=== PATIENT | female | born 1955 | race Caucasian/White ===

== ENCOUNTER 2016-12-09 09:53 | Observation (INO) | payer MEDICAID, MEDICARE ==
[2016-12-09] VITALS (9 sets, daily range): BP systolic 119–149; BP diastolic 66–86; PULSE 87–99; RESP 16–20; O2SAT 94–99
[~2016-12-09] VITALS: Ht 172.7 cm; Wt 121.4 kg
[~2016-12-09 09:53] MED LIST: ERGO500029 PO; EXEN2PEN SQ; INSU100V SUBQ; LISI10TA2 PO; METF500T4 PO; PREG150C PO; SIMV20TA PO
--- NOTE | 2016-12-09 10:33 | ED.REPORT ---
HPI-Chest Pain 40 and Over Date of Service Dec 09, 2016 ED Provider: Mikey Soto MD This is a 61 year old female with a history of hypertension, hyperlipidemia, and DM presenting to the emergency department via EMS due to sudden onset chest pain that began six hours ago that is now resolved. Patient woke up from sleep with sudden onset left sided chest pain described as "grabbing" that radiated to the left shoulder. Denies radiation to back or neck. Pain associated with nausea, shortness of breath, and mild lightheadedness. Denies vomiting. Patient took ASA and measured BP to be 173/158 and blood sugar to be 243 at that time. En route pt was given nitroglycerin which as resolved the chest pain. Nursing Notes Stated Complaint: CHEST PAIN Chief Complaint: Chest Pain Nursing Notes Reviewed: Yes Allergies: Coded Allergies: codeine (Verified Adverse Reaction, Unknown, GI UPSET, 02/03/15) Scheduled Cholecalciferol (Vitamin D3) (Vitamin D) 50,000 Unit Capsule 50,000 UNIT PO 3xw Dulaglutide (Trulicity) 0.75 Mg/0.5 Ml Pen.injctr 1 DOSE SUBQ WEEKLY Duloxetine (Duloxetine) 60 Mg Capsule.dr 60 MG PO BID Insulin Aspart (NovoLOG 70/30 U100 Insulin Vial) 100 Unit/Ml Vial 35 U SUBQ DAILY Insulin Aspart (NovoLOG 70/30 U100 Insulin Vial) 100 Unit/Ml Vial 40 UNIT SUBQ HS Lisinopril (Lisinopril) 10 Mg Tablet 10 MG PO DAILY Metformin (Metformin) 500 Mg Tablet 500 MG PO BIDWM Pregabalin (Lyrica) 150 Mg Capsule 225 MG PO BID Simvastatin (Zocor) 20 Mg Tablet 20 MG PO HS Scheduled PRN Hydrocodone-Acetaminophen 10-325 mg (Hydrocodone-Acetaminophen 10-325 mg) 1 Each Tablet 1-2 TABLET PO DAILY PRN PRN For Pain General Time Seen by MD: 10:17 Chief Complaint Chest pain Hx Obtained From: Patient Arrived By: Walk-in Sudden in Onset?: Yes Onset Occurred: 5 - 8 hours ago Symptom Duration: Since onset Severity: Current: Mild Pertinent Negative: Pt denies other symptoms Recent Healthcare: No recent doctor visit, No recent hospitalization Similar Sx Previous: No Risk Factors )( CAD Risk Stratification Diabetes mellitus Hyperlipidemia Hypertension Risk factors reviewed HEART Score HEART for MACE: Age 45 - 65 (1), 3+ CAD risk factors (2) Past Medical History Past Medical History Carpal tunnel Arthritis Fibromyalgia Reports: Diabetes mellitus, Hyperlipidemia, Hypertension Past Surgical History carpal tunnel release Ambulatory Status Independent Review of Systems Constitutional: Denies: Chills, Fever Respiratory: Reports: Shortness of breath, Denies: Non-productive cough Cardiovascular: Reports: Chest pain, Denies: Palpitations GI: Reports: Nausea, Denies: Abdominal pain, Diarrhea, Vomiting Musculoskeletal: Denies: Back pain Neurologic: Denies: Headache Complete sys rev & neg: except as marked. Physical Exam Initial Vital Signs Vital Signs (First) Date Time Temp Pulse Resp B/P Pulse Ox O2 Delivery O2 Flow Rate FiO2 12/09/16 10:06 37.3 87 17 142/82 96 Room Air Initial VS: Reviewed Head / Eyes: Atraumatic, Normocephalic, PERRL ENT: Mucous membranes moist, Conjunctiva normal, No scleral icterus Neck: Supple, Non-tender, Full range of motion Extremities: Vascular intact, Neuro intact, No swelling, No tenderness Skin: Warm, Dry, No cyanosis Neurologic: Alert, Oriented, Nonfocal Psychiatric: Mood/affect normal, Behavior normal, Normal thought content General/Constitutional: Awake, Alert Respiratory / Chest: Breath sounds NL, Breath sounds = bilat, No respiratory distress, No rales, No rhonchi, No wheezing, No stridor, No chest tenderness Cardiovascular: Regular rhythm, Heart sounds NL Left chest reproducible tendnerness Abdomen: Soft, Non-tender, McBurney's non-tender, No guarding, No rebound, BS normoactive, No distention, No hernia, No palpable mass Interpretation & Diagnostics Lab Results Interpretation Result Diagram: 12/09/16 1025 12/09/16 1025 Test 12/09/16 10:25 12/09/16 10:55 White Blood Count 7.5th/mm3 (3.8-10.1) Red Blood Count 4.39mil/mm3 (3.90-5.20) Hemoglobin 13.6g/dL (12.0-15.6) Hematocrit 41.1% (35.0-46.0) Mean Corpuscular Volume 93.6fL (81-100) Mean Corpuscular Hemoglobin 31.0pg (27.0-35.0) Mean Corpuscular Hemoglobin Concent 33.1% (32.0-37.0) Red Cell Distribution Width 12.2% (12.3-15.4) Platelet Count 204bil/L (150-400) Neutrophils (%) (Auto) 66.7% (40-74) Lymphocytes (%) (Auto) 22.2% (14-46) Monocytes (%) (Auto) 8.6% (4-12) Eosinophils (%) (Auto) 1.5% (0-5) Basophils (%) (Auto) 0.5% (0-3) Sodium Level 137mEq/L (134-144) Potassium Level 4.3mEq/L (3.5-5.2) Chloride Level 98mEq/L (97-108) Carbon Dioxide Level 20mmol/L (18-29) Blood Urea Nitrogen 13mg/dL (8-27) Creatinine 0.53mg/dL (0.57-1.00) Estimat Glomerular Filtration Rate 169mL/min (>59) Glucose Level 223mg/dL (60-99) Calcium Level 9.7mg/dL (8.5-10.1) Magnesium Level 1.8mg/dL (1.6-2.6) Total Bilirubin 0.3mg/dL (0.0-1.2) Aspartate Amino Transf (AST/SGOT) 35U/L (0-50) Alanine Aminotransferase (ALT/SGPT) 45U/L (0-32) Alkaline Phosphatase 61U/L (25-165) Troponin T 0.010ug/L (0.0-0.011) Pro-B-Type Natriuretic Peptide 8.91pg/mL (0-287) Total Protein 7.3g/dL (6.4-8.4) Albumin 4.1g/dL (3.4-5.0) Hold Fernandez Top Tube Received (Received) Prothrombin Time 10.3sec (8.1-12.5) Prothromb Time International Ratio 0.96ratio ECG Interpretation ECG Interpretation: SR at a rate of [address] changes Time: 10:39 Interpreted by: ED physician X-Ray Chest Interpretation Chest Xray Interpretation: IMPRESSION: Stable chest. No acute cardiopulmonary process is suspected. Dictated by: Lobo Lloyd M.D. on 12/09/2016 at 9:54 Approved by: Lobo Lloyd M.D. on 12/09/2016 at 9:55 Re-Eval/Medical Decision Med Decision/Clinical Course 61-year-old female history of hypertension, hyperlipidemia, diabetes presenting with chest pain that woke her up this morning substernal. It woke her up at 4 AM then again at 7 AM. Resolved with nitroglycerin at her primary doctor's office. Negative troponins 1. Given elevated heart score and discussion with patient and family she will be admitted for observation. Time of Eval: 12:50 Re-Evaluation/Progress Note: Discussed lab results and need for admission. Pt understands and agrees with plan, all questions addressed. Consultation : Referral / Consult Name: DenisscoutVik Consulted With: Hospitalist Call Returned at: 13:24 Record Systems Analyst: Accepts admit Counseled Regarding: Diagnosis, Lab results, Need for follow-up, Need for admission Discharge & Departure Primary Impression: Chest pain Chest pain type: unspecified Qualified Code: R07.9 - Chest pain, unspecified Disposition: ADMITTED TO HOSPITAL Discharge Condition All VS Reviewed: Yes Condition: Stable Referrals: Jonathan Antunez MD (PCP) Scribe Attestation Portions of this note were transcribed by Nehemias Noe. I, Dr. Soto personally performed the history, physical exam and medical decision-making; I reviewed and confirmed the accuracy of the information in the transcribed note. Signed by Taylor Quispe, 12/09/2016 at 18:00. Mikey Soto MD Dec 09, 2016 10:33 NEHEMIAS NOE Dec 09, 2016 10:39
[2016-12-09 10:38] LABS: BASOPHILS % (AUTO) 0.5 % (0-3); EOSINOPHILS % (AUTO) 1.5 % (0-5); MONOCYTES % (AUTO) 8.6 % (4-12); Mean Corpuscular Volume 93.6 fL (81-100); NEUTROPHILS % (AUTO) 66.7 % (40-74); Platelet Count 204 bil/L (150-400)
--- NOTE | 2016-12-09 10:56 | DRSVH ---
PROCEDURE: X-RAY CHEST ONE VIEW, PORTABLE ([id number]) INDICATIONS: cp TECHNIQUE: One view of the chest was acquired. COMPARISON: [facility], , CHEST 2VW, 06/08/2014, 12:22. [facility], , CHEST 2VW, 12/27/2013, 10:18. FINDINGS: Surgical changes and devices: None. Lungs and pleura: No pleural effusions or pneumothorax. Lungs are clear. Mediastinum: Mediastinal contours appear normal. Heart size is normal. Bones and chest wall: No suspicious bony lesions. Degenerative changes of the spine and shoulders a re noted. Overlying soft tissues appear unremarkable. IMPRESSION: Stable chest. No acute cardiopulmonary process is suspected. Dictated by: Lobo Lloyd M.D. on 12/09/2016 at 9:54 Approved by: Lobo Lloyd M.D. on 12/09/2016 at 9:55
[2016-12-09 11:24] LABS: INR 0.96 ratio
[2016-12-09 12:18] LABS: TROPONIN T 0.01 ug/L (0.0-0.011)
[2016-12-09 12:29] LABS: Magnesium 1.8 mg/dL (1.6-2.6)
[2016-12-09] MEDS ORDERED: NOVO7030I SUBQ ×2 (13:52)
[2016-12-09] MEDS ORDERED: HYDR-3740 PO (13:52)
[2016-12-09] MEDS ORDERED: DULO60CA61 PO (13:52)
[2016-12-09] MEDS ORDERED: DULA0.75 SUBQ (13:52)
[2016-12-09] MEDS ORDERED: LISI10TA PO (13:53)
[2016-12-09] MEDS ORDERED: CHOL500050 PO (13:54)
[2016-12-09] MEDS ORDERED: Alum-Mag Hydrox-Simeth 30 mL Suspension PO PRN ×2 (15:05→18:00)
[2016-12-09] MEDS ORDERED: Ondansetron 2 mg/mL 2 mL Inj IVPUSH PRN ×2 (15:05→18:00)
--- NOTE | 2016-12-09 15:20 | NUR ---
Admission Patient arrived on unit via gurney from ER. Patient alert and oriented x3 on arrival. Patient reporting waking this morning with chest pain/squeezing, radiating down Lt arm/hand with Lt hand numbness. Patient also reporting this morning having shortness of breath, nausea, dizziness. All symptoms now resolved. Patient currently reporting only a headache, "from the nitro". Denies current chest discomfort, nausea or shortness of breath.
[2016-12-09] MEDS ORDERED: Polyethylene Glycol (PEG) 17 Gm Powder PO PRN (18:00)
[2016-12-09] MEDS ORDERED: HYDROcodone-APAP 10-325 mg PO PRN (18:05)
--- NOTE | 2016-12-09 18:13 | PCM.HPMED ---
Subjective Date of Service Dec 09, 2016 Primary Provider: Admitting Physician: Vik Cortez Primary Care Physician: Zana Gauthier DO Attending Physician: Vik Cortez Chief Complaint: chest pain History of Present Illness: 61 year old female with a history of hypertension, hyperlipidemia, and DM presenting today with complaint of sudden onset chest pain that began around 4 am today. Patient woke up from sleep early this morning "not feeling well" and noticed she was having some left sided chest pain described as "grabbing" that radiated to the left shoulder. Denies radiation to back or neck. Pain associated with nausea, shortness of breath, and mild lightheadedness at the time. She called her daughter (who lives upstairs from her) who took her blood pressure and noted elevated at about 173/158 and blood sugar ws 243 at that time. Her daughter gave patient an Aspirin and patient was able to go back to sleep. In the morning she was going to see her doctor at the [facility] but was instead instructed to come to the ED. Because she was still having some chest pain and not feeling well EMS was called. En route pt was given nitroglycerin which almost immediately resolved the chest pain but she now has a mild headache as the result. She was having some lightheadedness and dizziness this morning but not now. She reports occasional lower extremity swelling when walking or standing too long but otherwise denies any orthopnea or paroxysmal nocturnal dyspnea. She reports chronic tingling in her feet due to diabetic neuropathy and tingling and pain in her hands from carpal tunnel. Allergies Coded Allergies: codeine (Verified Adverse Reaction, Unknown, GI UPSET, 02/03/15) Home Medications Lisinopril 10 Mg Tablet 10 Mg PO DAILY 30 Days Simvastatin 20 Mg Tablet (Zocor) 20 Mg PO HS 30 Days Duloxetine 60 Mg Capsule.Dr 60 Mg PO BID Hydrocodone-Acetaminophen 10-325 mg 1 Each Tablet 1-2 Tablet PO DAILY PRN Dulaglutide 0.75 Mg/0.5 Ml Pen.Injctr (Trulicity) 1 Dose SUBQ WEEKLY Insulin Aspart 100 Unit/Ml Vial (NovoLOG 70/30 U100 Insulin Vial) 35 U SUBQ DAILY Insulin Aspart 100 Unit/Ml Vial (NovoLOG 70/30 U100 Insulin Vial) 40 Unit SUBQ HS #1 VIAL Metformin 500 Mg Tablet 500 Mg PO BIDWM 30 Days Cholecalciferol (Vitamin D3) 50,000 Unit Capsule (Vitamin D) 50,000 Unit PO 3xw Exam Vital Signs & I/O Vital Sign- Last 8 Hours Date Time Temp Pulse Resp B/P Pulse Ox O2 Delivery O2 Flow Rate FiO2 12/09/16 17:13 36.8 94 18 119/77 96 Room Air 12/09/16 16:29 94 12/09/16 15:35 36.6 94 20 133/84 96 Room Air 12/09/16 14:51 37.0 97 18 125/66 99 Room Air 12/09/16 12:42 99 16 149/68 99 Room Air 12/09/16 11:00 90 18 144/76 96 Room Air Lab & Micro Results Laboratory Tests Test 12/09/16 10:25 12/09/16 10:55 White Blood Count 7.5th/mm3 (3.8-10.1) Red Blood Count 4.39mil/mm3 (3.90-5.20) Hemoglobin 13.6g/dL (12.0-15.6) Hematocrit 41.1% (35.0-46.0) Mean Corpuscular Volume 93.6fL (81-100) Mean Corpuscular Hemoglobin 31.0pg (27.0-35.0) Mean Corpuscular Hemoglobin Concent 33.1% (32.0-37.0) Red Cell Distribution Width 12.2% (12.3-15.4) Platelet Count 204bil/L (150-400) Neutrophils (%) (Auto) 66.7% (40-74) Lymphocytes (%) (Auto) 22.2% (14-46) Monocytes (%) (Auto) 8.6% (4-12) Eosinophils (%) (Auto) 1.5% (0-5) Basophils (%) (Auto) 0.5% (0-3) Sodium Level 137mEq/L (134-144) Potassium Level 4.3mEq/L (3.5-5.2) Chloride Level 98mEq/L (97-108) Carbon Dioxide Level 20mmol/L (18-29) Blood Urea Nitrogen 13mg/dL (8-27) Creatinine 0.53mg/dL (0.57-1.00) Estimat Glomerular Filtration Rate 169mL/min (>59) Glucose Level 223mg/dL (60-99) Calcium Level 9.7mg/dL (8.5-10.1) Magnesium Level 1.8mg/dL (1.6-2.6) Total Bilirubin 0.3mg/dL (0.0-1.2) Aspartate Amino Transf (AST/SGOT) 35U/L (0-50) Alanine Aminotransferase (ALT/SGPT) 45U/L (0-32) Alkaline Phosphatase 61U/L (25-165) Troponin T 0.010ug/L (0.0-0.011) Pro-B-Type Natriuretic Peptide 8.91pg/mL (0-287) Total Protein 7.3g/dL (6.4-8.4) Albumin 4.1g/dL (3.4-5.0) Hold Fernandez Top Tube Received (Received) Prothrombin Time 10.3sec (8.1-12.5) Prothromb Time International Ratio 0.96ratio Result Diagram: 12/09/16 1025 12/09/16 1025 Review of Systems: Constitutional: Negative, except as otherwise mentioned in the history above. Ophthalmologic: Negative, except as otherwise mentioned in the history above. Cardiovascular: Negative, except as otherwise mentioned in the history above. Respiratory: Negative, except as otherwise mentioned in the history above. Gastrointestinal: Negative, except as otherwise mentioned in the history above. Genitourinary: Negative, except as otherwise mentioned in the history above. Musculoskeletal: Negative, except as otherwise mentioned in the history above. Neurological: Negative, except as otherwise mentioned in the history above. Psychiatric: Negative, except as otherwise mentioned in the history above. Hematologic/Lymphatic: Negative, except as otherwise mentioned in the history above. Allergic/Immunologic: Negative, except as otherwise mentioned in the history above. PMH Carpal tunnel Arthritis Fibromyalgia Diabetes mellitus, Hyperlipidemia, Hypertension Diabetic neuropathy Surgical History left carpel tunnel surgery Family History Father with NJ in his 40's but from lung cancer in his 60's Social History Hx Alcohol Use: No Hx Substance Use: No Smoking Status: Never Smoker Exam Vital Signs Vital Sign - Last Date Time Temp Pulse Resp B/P Pulse Ox O2 Delivery O2 Flow Rate FiO2 12/09/16 17:13 36.8 94 18 119/77 96 Room Air General: Alert, Oriented X3, Cooperative Head: Normal Eyes: PERRLA, EOMI, Scleral Anicteric Nose: Mucous Membr Moist/Cataract Mouth: Mucous Membr Moist/Cataract Neck: Supple Chest & Lungs: Chest Wall Normal, Clear to auscultation & percussion Cardiovascular: Regular Rate/Rhythm Pulses: NL carotid, radial, femoral, DP, PT Abdomen: Non-tender, Non-distended, Normoactive bowel tones, Soft Extremities: Edema (1+ edema in LE bilat L>R) Skin: Other (no ulcer/rash) Neurological: Grossly Neurologically Intact, Cranial Nerves 2-12 Intact, Normal Speech Lymphatic: Other Lymph Nodes (no lymphadenopathy) Additional Information: Psych: appropriate affect Lab and Diagnostics Result Diagram: 12/09/16 1025 12/09/16 1025 X-Rays, CTs and MRIs Date of Service: 12/09/16 1005 PROCEDURE: X-RAY CHEST ONE VIEW, PORTABLE ([id number]) IMPRESSION: Stable chest. No acute cardiopulmonary process is suspected. Dictated by: Lobo Lloyd M.D. on 12/09/2016 at 9:54 Approved by: Lobo Lloyd M.D. on 12/09/2016 at 9:55 12-lead ECG NSR at about [address] elevation/depression. no old EKG for comparison Assessment & Plan 61 year old female with a history of hypertension, hyperlipidemia, and DM presenting today with complaint of sudden onset chest pain that began around 4 am today. # Acute chest pain. present on admission. - admit to tele - rule out NJ by cycling Trop - check Echo - stress test in morning - start Aspirin 325 daily - continue with Statin - fasting lipid panel # Diabetes Type II. - continue with home dose Insulin - cover with ISS - check HgA1C # Arthritis, chronic. stable - continue with supportive care including pain meds as needed # Fibromyalgia, chronic. stable - continue with home meds # Hyperlipidemia, chronic. - fasting lipid panel - continue with home dose Statin for now # Hypertension, chronic. stable - continue with home dose Lisinopril # Diabetic neuropathy, chronic. stable - continue with supportive care # Lower extremity edema, acute on chronic. present on admission. - check D-Dimer and if positive check lower extremity ultrasound. if DDimer negative no further workup Dispo: likely home tomorrow if cardiac workup negative GI Prophylaxis: Proton Pump Inhibitor VTE Prophylaxis: Sub-Q Heparin (Unfractionated) VTE Mechanical Devices: Intermittant Pneumatic CD Resuscitation Status: CPR: Attempt Resuscitation (discussed and verified with patient) Time spent 60 min Vik Cortez Dec 09, 2016 18:12
[2016-12-09] MEDS ORDERED: Insulin ASPART 70/30 FlexPen 300 Unit/3 mL Inj SUBQ SCH (21:00)
[2016-12-09] MEDS: DULoxetine 30 mg DR Capsule PO SCH (21:03)
[2016-12-09] MEDS: Insulin Human REGular 300 Unit/3 mL Inj SUBQ SCH (21:09)
[2016-12-10 01:36] VITALS: BP 131/81; PULSE 86; RESP 18; O2SAT 97
[2016-12-10] MEDS: Heparin 5,000 Unit/mL Inj SUBQ SCH ×3 (01:48→16:58)
[2016-12-10 05:59] VITALS: BP 135/74; PULSE 79; RESP 18; O2SAT 98
[2016-12-10 06:11] LABS: APPEARANCE,URINE HAZY (CLEAR,HAZY); COLOR,URINE DARK YELLOW (YELLOW); OCCULT BLOOD,URINE NEGATIVE (NEGATIVE); UROBILINOGEN,URINE NORMAL (NORMAL)
[2016-12-10 07:22] LABS: Mean Corpuscular Hemoglobin 31.1 pg (27.0-35.0); Mean Corpuscular Volume 94.3 fL (81-100)
[2016-12-10 07:29] LABS: Magnesium 1.8 mg/dL (1.6-2.6)
[2016-12-10] MEDS ORDERED: Pantoprazole 20 mg ER24 Tablet PO SCH (07:30)
[2016-12-10] MEDS ORDERED: Insulin ASPART 70/30 FlexPen 300 Unit/3 mL Inj SUBQ SCH (08:30)
[2016-12-10] MEDS: Insulin Human REGular 300 Unit/3 mL Inj SUBQ SCH ×3 (09:07→17:08)
[2016-12-10] MEDS: DULoxetine 30 mg DR Capsule PO SCH (09:11)
--- NOTE | 2016-12-10 09:58 | NUR ---
Case Management: [employer] and Medicare Part D pamphlet were delivered and explained to patient @0926 am. Original placed in chart; copy left at bedside. Cynthia Roebrtson RN
[2016-12-10 10:37] VITALS: BP 133/89; PULSE 102; PULSE 91; RESP 18; O2SAT 95
--- NOTE | 2016-12-10 14:46 | NUR ---
Social Work Note - Initial Assessment: D/A: See Initial Assessment. The Pt is a 61 y/o female that was admitted under observation status for chest pain. Readmission Risk Score 5. The Pt's PCP is MD Zana Gauthier and her insurance is Medicare. EMR reviewed. ARTUR met with the Pt's daughter to explain role and discuss discharge planning, Pt out of the room for stress test. ARTUR telephone number written on [employer] board. The Pt lives independently with her daughter on [address]. The Pt does not have an Advanced Directive, paperwork provided to daughter. The Pt continues to drive and uses a cane when necessary. The Pt's daughter reports that the Pt only needs some assistance when sitting in a deep chair. No HH/SNF history reported. Cardiology involved. Echo completed, pending results. Stress test active. The Pt's family deny any needs at this time, SW to follow if needs arise. P: The Pt is not medically stable for discharge at this time, likely to discharge home via family POV transportation if Cardiology work up is negative. The Pt's family deny any needs at this time, SW to follow if needs arise. LEONARDO [employer] Superintendent Addendum: 12/10/16 at 1452 by SHILPI PRO SS Amended: Links added.
--- NOTE | 2016-12-10 15:13 | DRSVH ---
[facility] [address] [place] [address] Echocardiogram Report Name: ABDIRIZAK ALBA MStudy Date: 12/10/2016 Height: 68 in Hospital Exam Location: [facility] Weight: 268 lb Gender: Female BSA: 2.3 m2 : 1955 Age: 61 yrs Referring Physician: BLU DAVIDSON Interpretation Summary The left ventricle is grossly normal size. The ejection fraction is estimated to be 65-70%. The right ventricle is mildly dilated. The right ventricular systolic function is normal. The aortic valve is moderately calcified. There is no aortic valve stenosis. Procedure: A two-dimensional transthoracic echocardiogram with color flow and Doppler was performed. The study quality was technically adequate. There is no prior echocardiogram noted for this patient. The patient was in normal sinus rhythm during the exam. Left Ventricle: The left ventricle is grossly normal size. Proximal septal thickening is noted. There is no echo evidence for significant left ventricular outflow tract obstruction. There is no thrombus. The ejection fraction is estimated to be 65-70%. There are no obvious focal wall motion abnormalities noted but poor endocardial definition reduces the sensitivity for the detection of such. The E/A ratio is reversed, suggesting impaired early relaxation of the left ventricle or a reduced preload state. Right Ventricle: The right ventricle is mildly dilated. A calcified moderator band is seen in the right ventricle. The right ventricular systolic function is normal. Atria: The left atrial size is normal. Right atrial size is normal. The interatrial septum is intact with no evidence for an atrial septal defect. The thickening of interatrial septum suggests lipomatous hypertrophy. Mitral Valve: There is mild mitral annular calcification. The mitral valve leaflets are slightly calcified. There is no mitral regurgitation noted. Aortic Valve: The aortic valve is trileaflet. The aortic valve is moderately calcified. There is no aortic valve stenosis. No aortic regurgitation is present. Tricuspid Valve: The tricuspid valve is not well visualized, but is grossly normal. There is trace tricuspid regurgitation. Pulmonary artery pressures cannot be estimated because of the lack of a measurable TR jet velocity. Pulmonic Valve: The pulmonic valve is not well visualized. There is no pulmonic valvular regurgitation. Great Vessels: The aortic root is normal size. The dimensions of the ascending aorta are normal. The aortic arch is mildly enlarged. The IVC is of normal diameter and collapses greater than 50% with a sniff. This suggests a low right atrial pressure of 3 mm Hg. Pericardium/ Pleura There is no pericardial effusion. There is no pleural effusion. MMode/2D Measurements & Calculations LVIDd: 4.4 cm LA dimension: 3.9 cm RA long axis AoV Opening LVIDs: 2.9 cm FS: 34.5 % LA A2 area: 14.0 cm RA area Ao root diam IVSd: 0.94 cm LA A4 area: 18.5 cm LVPWd: 0.81 cm LA length (vol) : 15.5 cm Aortic Jxn: 2.7 cm RA vol asc Aorta Diam LA vol: 43.9 ml : 48.8 ml LA vol index RA Ao Arch Diam (Prox : 21.1 mm/ Trans): 3.4 cm : 19.0 ml/m2 RVDd major : 5.6 cm LV lay. diameter/BSA LV sys. diameter/BSA RVD1 (basal) RVD2 (mid): 3.5 cm (cm/m^2): 1.9 (cm/m^2): 1.3 Doppler Measurements & Calculations Ao V2 max MV E max stone MV E/A: 0.64 PA V2 max : 146.5 cm/sec : 54.1 cm/sec Med Peak E' Stone : 108.6 cm/sec Ao max PG MV A max stone PA mean PG : 8.6 mmHg : 83.9 cm/sec E/E' med: 11.4 Ao mean PG MV P1/2t: 82.4 msec Lat Peak E' Stone PA Accel Time : 5.0 mmHg : 0.11 sec E/E' lat: 8.2 E/e' average: 9.8 MV A dur: 0.14 sec MV dec time MV P1/2t max stone Ao V2 mean PA V2 mean : 0.27 sec : 105.5 cm/sec : 74.3 cm/sec MVA(P1/2t): 2.7 cm2 Ao V2 VTI: 27.4 cm Reading Physician:CARLY
--- NOTE | 2016-12-10 17:14 | DRSVH ---
PROCEDURE: 1 DAY PHARMACOLOGICAL STRESS TEST Rest and pharmacological stress myocardial perfusion SPECT with gated imaging and ejection fraction RADIOPHARMACEUTICAL: 15.2 mCi Tc-99m tetrafosmin IV at rest and 42.6 mCi Tc-99m tetrafosmin IV at pea k effect of pharmacological stress. A [id number] was performed. INDICATIONS: CHEST PAIN TECHNIQUE: Radiopharmaceutical was injected at peak stress test, and also at rest. SPECT images wer e obtained. SPECT myocardial perfusion images were displayed in short axis, horizontal long axis, an d vertical long axis views. Gated images were reviewed using Breathometer[employer]ANT software. COMPARISON: None. CARDIAC STRESS: A pharmacologic stress test was performed under the supervision of an attending staff, using an infus ion of Regadenoson. Hemodynamic data: There is normal blood pressure and heart rate response to pharmacologic stress. Symptoms: The patient denied anginal chest pain. Aminophylline: None EKG: No diagnostic changes of ischemia; no ectopy. FINDINGS: Raw data: There is good myocardial uptake of radiotracer. No significant motion artifacts. Left ventricle function: Gated images demonstrate normal left ventricular wall thickening. No segme ntal wall motion abnormalities. Left ventricle resting end diastolic volume is 74 mL. Left ventricle stress ejection fraction is 86%; normal range is above 45%. Myocardial perfusion: There is normal distribution of activity in the right and left ventricular mike cardium. No fixed or reversible perfusion defects. IMPRESSION: This is a normal myocardial perfusion study. There is no evidence of fixed or reversible perfusion defects. Ejection fraction is normal. Left ventricular wall motion is normal. Overall this is a low risk study for significant obstructive coronary artery disease. Dictated by: Jase Ulloa Jr., M.D. on 12/10/2016 at 17:11 Approved by: Jase Ulloa Jr., M.D. on 12/10/2016 at 17:13
--- NOTE | 2016-12-10 17:34 | PCM.DIMED ---
Discharge Instructions Date of Service Dec 10, 2016 Dates of Hospitalization Dec 09, 2016 at 13:49 Discharge Diagnosis Discharge Diagnosis # Acute chest pain. present on admission. Resolved - unclear etiology but ruled out for acute myocardial infarction and with negative cardiac workup including stress test and echocardiogram. # Hyperlipidemia, chronic. - Triglyceride: 900 - Cholesterol: 246 # Diabetes Type II. Poorly controlled - check HgA1C 9.2 # Arthritis, chronic. stable # Fibromyalgia, chronic. stable # Hypertension, chronic. stable # Diabetic neuropathy, chronic. stable Diet Low fat, Low Sodium, Heart Healthy, Diabetic Activity No restrictions Call your provider Fever or Chills, Shortness of breath, Chest pain, Vomitting Patient Instructions Seek immediate medical attention if any new or worsening signs or symptoms occur. Follow-up plan 1. Followup with primary care provider in 2-7 days and to address hypertriglyceridemia Follow-up Provider: Zana Gauthier Masoud Dec 10, 2016 17:34
--- NOTE | 2016-12-10 17:38 | PCM.DC.MED ---
Discharge Summary Date of Service Dec 10, 2016 Dates of Hospitalization Date of Hospital Admission Dec 09, 2016 at 13:49 Date of Discharge: Dec 10, 2016 Providers: Admitting Physician: Vik Cortez Primary Care Physician: Zana Gauthier DO Attending Physician: Vik Cortez Diagnosis at Time of Discharge Diagnosis at Time of Discharge # Acute chest pain. present on admission. Resolved - unclear etiology but ruled out for acute myocardial infarction and with negative cardiac workup including stress test and echocardiogram. # Hyperlipidemia, chronic. - Triglyceride: 900 - Cholesterol: 246 # Diabetes Type II. Poorly controlled - check HgA1C 9.2 # Arthritis, chronic. stable # Fibromyalgia, chronic. stable # Hypertension, chronic. stable # Diabetic neuropathy, chronic. stable Procedures XRay, CTs & MRIs Date of Service: 12/09/16 1005 PROCEDURE: X-RAY CHEST ONE VIEW, PORTABLE ([id number]) IMPRESSION: Stable chest. No acute cardiopulmonary process is suspected. Dictated by: Lobo Lloyd M.D. on 12/09/2016 at 9:54 Approved by: Lobo Lloyd M.D. on 12/09/2016 at 9:55 ECG 12 Lead NSR at about [address] elevation/depression. no old EKG for comparison Cardiac Echo Impression Date of Service: 12/10/161800 Echocardiogram Report Interpretation Summary The left ventricle is grossly normal size. The ejection fraction is estimated to be 65-70%. The right ventricle is mildly dilated. The right ventricular systolic function is normal. The aortic valve is moderately calcified. There is no aortic valve stenosis. Reading Physician:PM Other Diagnostics Date of Service: 12/10/161800 PROCEDURE: 1 DAY PHARMACOLOGICAL STRESS TEST IMPRESSION: This is a normal myocardial perfusion study. There is no evidence of fixed or reversible perfusion defects. Ejection fraction is normal. Left ventricular wall motion is normal. Overall this is a low risk study for significant obstructive coronary artery disease. Dictated by: Jase Ulloa Jr., M.D. on 12/10/2016 at 17:11 Approved by: Jase Ulloa Jr., M.D. on 12/10/2016 at 17:13 Brief History 61 year old female with a history of hypertension, hyperlipidemia, and DM presenting today with complaint of sudden onset chest pain that began around 4 am today. Patient woke up from sleep early this morning "not feeling well" and noticed she was having some left sided chest pain described as "grabbing" that radiated to the left shoulder. Denies radiation to back or neck. Pain associated with nausea, shortness of breath, and mild lightheadedness at the time. She called her daughter (who lives upstairs from her) who took her blood pressure and noted elevated at about 173/158 and blood sugar ws 243 at that time. Her daughter gave patient an Aspirin and patient was able to go back to sleep. In the morning she was going to see her doctor at the [facility] but was instead instructed to come to the ED. Because she was still having some chest pain and not feeling well EMS was called. En route pt was given nitroglycerin which almost immediately resolved the chest pain but she now has a mild headache as the result. She was having some lightheadedness and dizziness this morning but not now. She reports occasional lower extremity swelling when walking or standing too long but otherwise denies any orthopnea or paroxysmal nocturnal dyspnea. She reports chronic tingling in her feet due to diabetic neuropathy and tingling and pain in her hands from carpal tunnel. Hospital Course # Acute chest pain. present on admission. Resolved - ruled out for ACS by negative Trop x 3 - echo and stress test negative and unremarkable - D Dimer negative # Hyperlipidemia, chronic. - fasting lipid panel shows hypertriglyceridemia of 900 - further followup and management as outpatient # Diabetes Type II. poorly controlled - check HgA1C 9.2 - further followup and management as outpatient # Arthritis, chronic. stable # Fibromyalgia, chronic. stable # Hypertension, chronic. stable # Diabetic neuropathy, chronic. stable by day of discharge lungs CTA bilaterally. CV: RRR Exam Vital Signs (Last) Date Time Temp Pulse Resp B/P Pulse Ox O2 Delivery O2 Flow Rate FiO2 12/10/16 10:37 36.5 102 18 133/89 95 Room Air Test 12/09/16 06:00 12/09/16 10:25 12/09/16 10:55 12/09/16 18:33 Urine Color Dark yellow (YELLOW) Urine Appearance Hazy (CLEAR,HAZY) Urine pH 5.0 (5.0-8.0) Urine Specific [place] 1.025 (1.003-1.035) Urine Protein Negativemg/dL (NEG,TRACE) Urine Glucose (UA) Negativemg/dL (NEGATIVE) Urine Ketones Negativemg/dL (NEGATIVE) Urine Occult Blood Negative (NEGATIVE) Urine Nitrite Negative (NEGATIVE) Urine Bilirubin Negative (NEGATIVE) Urine Urobilinogen Normalmg/dL (NORMAL) Urine Leukocyte Esterase Negative (NEGATIVE) Urine RBC 0-2/hpf (0-2) Urine WBC 6-10/hpf (0-5) Urine Epithelial Cells Many/hpf (NONE-MOD) Urine Crystals None seen (NONE SEEN) Urine Bacteria Many/hpf (NONE-FEW) Urine Hyaline Casts None/lpf (NONE) Urine Granular Casts None seen (NONE SEEN) Urine Waxy Casts None seen (NONE SEEN) Urine Red Blood Cell Casts None seen (NONE SEEN) Urine White Blood Cell Casts None seen (NONE SEEN) Urine Mucus Present (None Seen) Urine Trichomonas None seen (NONE SEEN) Urine Yeast None (NONE SEEN) Urine Culture Reflexed Indicated Neutrophils (%) (Auto) 66.7% (40-74) Lymphocytes (%) (Auto) 22.2% (14-46) Monocytes (%) (Auto) 8.6% (4-12) Eosinophils (%) (Auto) 1.5% (0-5) Basophils (%) (Auto) 0.5% (0-3) Hemoglobin A1c 9.2% (4.8-5.6) Total Bilirubin 0.3mg/dL (0.0-1.2) Aspartate Amino Transf (AST/SGOT) 35U/L (0-50) Alanine Aminotransferase (ALT/SGPT) 45U/L (0-32) Alkaline Phosphatase 61U/L (25-165) Pro-B-Type Natriuretic Peptide 8.91pg/mL (0-287) Total Protein 7.3g/dL (6.4-8.4) Albumin 4.1g/dL (3.4-5.0) Hold Fernandez Top Tube Received (Received) Prothrombin Time 10.3sec (8.1-12.5) Prothromb Time International Ratio 0.96ratio D-Dimer < 0.50mg/L FEU (<0.50) Test 12/10/16 05:20 12/10/16 10:00 White Blood Count 7.1th/mm3 (3.8-10.1) Red Blood Count 4.40mil/mm3 (3.90-5.20) Hemoglobin 13.7g/dL (12.0-15.6) Hematocrit 41.5% (35.0-46.0) Mean Corpuscular Volume 94.3fL (81-100) Mean Corpuscular Hemoglobin 31.1pg (27.0-35.0) Mean Corpuscular Hemoglobin Concent 33.0% (32.0-37.0) Red Cell Distribution Width 12.4% (12.3-15.4) Platelet Count 193bil/L (150-400) Sodium Level 138mEq/L (134-144) Potassium Level 4.3mEq/L (3.5-5.2) Chloride Level 99mEq/L (97-108) Carbon Dioxide Level 21mmol/L (18-29) Blood Urea Nitrogen 12mg/dL (8-27) Creatinine 0.50mg/dL (0.57-1.00) Estimat Glomerular Filtration Rate 180mL/min (>59) Glucose Level 194mg/dL (60-99) Calcium Level 9.6mg/dL (8.5-10.1) Magnesium Level 1.8mg/dL (1.6-2.6) Triglycerides Level 900mg/dL (0-149) Cholesterol Level 246mg/dL (100-199) LDL Cholesterol, Calculated mg/dL (0-99) VLDL Cholesterol mg/dL HDL Cholesterol 26mg/dL (>39) Cholesterol/HDL Ratio 9.46 (0.0-4.4) Troponin T 0.010ug/L (0.0-0.011) Discharge Medications Discharge Medications Cholecalciferol (Vitamin D3) (Vitamin D) 50,000 Unit Capsule 50,000 UNIT PO 3xw (Reported) Dulaglutide (Trulicity) 0.75 Mg/0.5 Ml Pen.injctr 1 DOSE SUBQ WEEKLY (Reported) Duloxetine (Duloxetine) 60 Mg Capsule.dr 60 MG PO BID (Reported) Insulin Aspart (NovoLOG 70/30 U100 Insulin Vial) 100 Unit/Ml Vial 35 U SUBQ DAILY (Reported) Insulin Aspart (NovoLOG 70/30 U100 Insulin Vial) 100 Unit/Ml Vial 40 UNIT SUBQ HS (Reported) Lisinopril (Lisinopril) 10 Mg Tablet 10 MG PO DAILY (Reported) Metformin (Metformin) 500 Mg Tablet 500 MG PO BIDWM (Reported) Pregabalin (Lyrica) 150 Mg Capsule 225 MG PO BID (Reported) Simvastatin (Zocor) 20 Mg Tablet 20 MG PO HS (Reported) As needed Hydrocodone-Acetaminophen 10-325 mg (Hydrocodone-Acetaminophen 10-325 mg) 1 Each Tablet 1-2 TABLET PO DAILY PRN PRN For Pain (Reported) Followup Plan Disposition: Home Follow-up plan 1. Followup with primary care provider in 2-7 days and to address hypertriglyceridemia Discharge Diet: Low fat, Low Sodium, Heart Healthy, Diabetic Discharge Activity: No restrictions Patient Instructions Seek immediate medical attention if any new or worsening signs or symptoms occur. Follow-up Provider: Zana Gauthier DO Time spent 30 min copies to: Zana Gauthier Masoud Dec 10, 2016 17:38
--- NOTE | 2016-12-10 19:16 | NUR ---
Discharge Pt had cardiac stress test today and then discharged home with family prior to shift change. Pt denied chest pain throughout entire shift. Pt given discharge educational materials on chest pain and cardiac stress tests. Pt's IV access D/C'd and intact. Pt instructed to f/u with PCP in 2-7 days. Pt verbalized understanding of all discharge instructions. All belongings accompanied Pt at time of discharge.
== END 2016-12-10 19:12 | disposition home or self-care (01) ==
LOC: SED 09:53 → MPC 13:49
PROVIDERS: ADMIT Internal Medicine; ATTEND Internal Medicine
DX: R07.9 Chest pain, unspecified (principal); E78.5 Hyperlipidemia, unspecified; E11.40 Type 2 diabetes mellitus with diabetic neuropathy, unspecified; M19.90 Unspecified osteoarthritis, unspecified site; M79.7 Fibromyalgia; R60.0 Localized edema; Z88.8 Allergy status to other drugs, medicaments and biological substances; Z79.4 Long term (current) use of insulin; Z79.84 Long term (current) use of oral hypoglycemic drugs
CPT/HCPCS: 71010; 78452; 80048; 80053; 80061; 81000; 83036; 83735; 83880; 84484; 85025; 85027; 85378; 85610; 87077; 87086; 87088; 87186; 93005; 93017; 99285; A9502; J1644; J1815; J2785